=== PATIENT | female | born 2000 | race Caucasian/White ===

== ENCOUNTER 2020-11-26 15:33 | Emergency (ER) | payer SELFPAY ==
[~2020-11-26] VITALS: Ht 170.2 cm; Wt 90.7 kg
[2020-11-26] MEDS ORDERED: SODIUM CHLORIDE 0.9% 1,000 ML IVB ONE (16:15)
[2020-11-26] MEDS ORDERED: dilTIAZem 25 MG/5 ML VIAL IV ONE (16:15)
[2020-11-26 16:47] LABS: Urine Bacteria NONE SEEN /hpf (None Seen); Urine Blood Negative /uL (Negative); Urine Mucus MANY (None Seen); Urine Specific Gravity 1.003 (1.001-1.035); Urine WBC 9 /hpf (0 - 5); Urine WBC Clumps PRESENT /hpf (None Seen)
[2020-11-26 16:49] LABS: Basophils # (auto) 0.1 10 ^3/uL (0-0.2); Eosinophils % (auto) 0.4 % (0.0-7.0); Lymphocytes # (auto) 1.3 10 ^3/uL (0.4-5.4)
[2020-11-26 16:50] LABS: Basophils % (auto) 0.7 % (0.0-2.0); Eosinophils # (auto) 0 10 ^3/uL (0-0.8); Hemoglobin 11.7 g/dL (12.2-16.2); Lymphocytes % (auto) 9.8 % (10.0-50.0); Mean Corpuscular Hgb Conc. 32.5 g/dL (32.0-36.0); Mean Corpuscular Volume 73.7 fL (80.0-100.0); Monocytes # (auto) 0.8 10 ^3/uL (0-1.3); Monocytes % (auto) 6.1 % (0.0-12.0); Neutrophils # (auto) 10.9 10 ^3/uL (1.6-8.6); Platelet Count (auto) 387 10^3/uL (140-450); Red Blood Cells 4.88 10^6/uL (4.0-5.20); Red Cell Distribution Width 14.5 % (11.8-14.3); White Blood Cell 13.1 10^3/uL (4.4-10.8)
[2020-11-26 17:02] LABS: Albumin 4.2 g/dL (3.4-5.0); Anion Gap 8 (5-15); Blood Urea Nitrogen 5 mg/dL (7-18); Calcium 9.2 mg/dL (8.5-10.1); Carbon Dioxide 22 mmol/L (21-32); Chloride 111 mmol/L (98-107); Glucose 98 mg/dL (74-106); Magnesium 2.1 mg/dL (1.6-2.6); Potassium 3.4 mmol/L (3.5-5.1); Sodium 141 mmol/L (136-145)
[2020-11-26 17:05] LABS: Alanine Aminotransferase 17 U/L (13-56); Aspartate Aminotransferase 12 U/L (15-37); BUN/Creatinine Ratio 6.2; GFR African American 114 mL/min; GFR Non-African American 94 mL/min
[2020-11-26 17:10] LABS: Alkaline Phosphatase 74 U/L (45-117); Bilirubin, Total 1.1 mg/dL (0.2-1.0); Total Protein 7.5 g/dL (6.4-8.2)
[2020-11-26] MEDS ORDERED: POTASSIUM EFFERVESENT TAB 25 MEQ PO ONE (17:30)
[2020-11-26 17:50] VITALS: BP 131/78
== END 2020-11-26 18:05 | disposition home or self-care (01) ==
LOC: ER 15:38
DX: I47.1 Supraventricular tachycardia (principal); D50.9 Iron deficiency anemia, unspecified; E87.6 Hypokalemia
CPT/HCPCS: 36415; 80053; 81001; 83735; 84443; 84484; 85025; 93005; 96360; 99284; J7030